=== PATIENT | female | born 1990 | race Caucasian/White ===

== ENCOUNTER 2019-01-09 09:48 | Emergency (ER) | payer OTHER ==
[2019-01-09 09:57] VITALS: BMI 24.4
[2019-01-09] MEDS ORDERED: FAMOTIDINE 20 MG/50 ML IVPB 20 MG/50 ML MG IVPB ONE ×2 (10:17→10:34)
[2019-01-09] MEDS ORDERED: SODIUM CHLORIDE 1,000 ML IV STA (10:17)
--- NOTE | 2019-01-09 10:18 | PDOC ---
History of Present Illness - General Chief Complaint: Nausea/Vomiting Stated Complaint: /VOMITING/PAIN Time Seen by Provider: 01/09/19 10:04 History Source: Patient Exam Limitations: Language Barrier - History of Present Illness Travel History: No Initial Comments: 01/09/19 10:15 Pt is a 28yo F at around 10w gestation with no signficant PMH presenting to ED with complaints of nausea, nbnb vomiting and abdominal pain x 1 week. Pt states that she has not been able to keep solids or liquids down. She endorses epigastric abdominal pain that does not radiate. Denies fever, chills, diarrhea , recent travel, sick contacts, bloody stools, flank pain, vaginal bleeding, vaginal discharge, leakage of fluids. She has an OB appointment in 3 days. She has not had any testing or imaging. Last BM yesterday PMD: [address] [place] PMH: none PSH: Meds: none Allergies: nkda Past History - Past Medical History Allergies/Adverse Reactions: Allergies Allergy/AdvReac Type Severity Reaction Status Date / Time No Known Allergies Allergy Verified 01/09/19 09:55 Home Medications: Ambulatory Orders Prenat 115/Iron Fum/Folic/Dss [ 19 Tablet] 1 each PO DAILY 01/09/19 - Suicide/Smoking/Psychosocial Hx Smoking History: Never smoked Review of Systems - Review of Systems Constitutional: No: Symptoms Reported HEENTM: No: Symptoms Reported Respiratory: No: Symptoms reported Cardiac (ROS): No: Symptoms Reported ABD/GI: Yes: See HPI, Nausea, Vomiting, Abdominal cramping. No: Constipated, Diarrhea : No: Symptoms Reported Musculoskeletal: No: Symptoms Reported Integumentary: No: Symptoms Reported Neurological: No: Symptoms reported *Physical Exam - Vital Signs Last Vital Signs Temp Pulse Resp BP Pulse Ox 97.9 F 90 20 100/50 L 99 01/09/19 09:55 01/09/19 09:55 01/09/19 09:55 01/09/19 09:55 01/09/19 09:55 - Physical Exam General Appearance: Yes: Nourished, Appropriately Dressed. No: Apparent Distress HEENT: positive: EOMI, AMELIA, Normal ENT Inspection Neck: positive: Trachea midline, Supple. negative: Lymphadenopathy (R), Lymphadenopathy (L) Respiratory/Chest: positive: Lungs Clear, Normal Breath Sounds. negative: Crackles, Rales Cardiovascular: positive: Regular Rhythm, Regular Rate, S1, S2. negative: Edema , JVD, Murmur Vascular Pulses: Carotid (R): 2+, Carotid (L): 2+, Dorsalis-Pedis (R): 2+, Doralis-Pedis (L): 2+ Gastrointestinal/Abdominal: positive: Normal Bowel Sounds, Tender (slight epigastric tenderness), Soft Musculoskeletal: negative: CVA Tenderness Extremity: positive: Normal Capillary Refill. 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 Pt states that she has not been able to keep solids or liquids down. She endorses epigastric abdominal pain that does not radiate. Denies fever, chills, diarrhea , recent travel, sick contacts, bloody stools, flank pain, vaginal bleeding, vaginal discharge, leakage of fluids. She has an OB appointment in 3 days. She has not had any testing or imaging. Vitals: slight hypotension PE: slight epigastric tenderness ddx includes but not limited to hyperemesis gravidarum, pancreatitis, cholecystitis, HELLP, colitis, viral gastritis, morning sickness -labs, bquant -tvus -fluids, vitamin b6, pepcid labs wnl. TVUS shows 7w5d iup. pt feeling better after medications. drinking gatorade, tolerating po. hemodynamically stable, has iup. pt has ob f/u. safe for dc home. given return precautions. *DC/Admit/Observation/Transfer Diagnosis at time of Disposition: Nausea and vomiting during , Intrauterine - Discharge Dispostion Disposition: HOME Condition at time of disposition: Improved Decision to Admit order: No - Referrals - Patient Instructions Printed Discharge Instructions: DI for Vomiting -- Adult Additional Instructions: Rocio changn en la german de emergencias por nuseas y vmitos. Rin anlisis de belen son normales. La ecografa indica que el beb tiene 7 semanas y 5 johnson de edad. Lo ms probable es que tenga nuseas matutinas. Por favor mantente marcy hidratado. Lupe muchos lquidos. Puede ayden vitamina B6 para las nuseas y vmitos. [place] se puede encontrar en la seccin de vitaminas de las farmacias. Tambin debe ayden vitaminas prenatales diariamente. Mantenga braxton gilbert el da 24. Regrese a la german de emergencias si tiene sangrado, contina vomitando, tiene fiebre o si se presenta algn sntoma nuevo. Patel You were seen in the emergency room today for nausea and vomiting. Your blood tests are normal. The ultrasound states that the baby is 7 weeks and 5 days old. You most likely have morning sickness. Please keep yourself well hydrated. Drink lots of fluids. You can take vitamin B6 for the nausea and vomiting. This can be found in the vitamin section of pharmacies. You should also take vitamins daily. Keep your appointment on the . Come back to the emergency room if you have bleeding, you continue vomiting, you have fever or if any new concerning symptom develops. Thank you Print Language: POLISH - Post Discharge Activity
[2019-01-09 10:37] LABS: BASO % 0.4 % (0-2.0); EOS % 0.5 % (0-4.5); HEMATOCRIT 36.1 % (32.4-45.2); HEMOGLOBIN 12.4 GM/dL (10.7-15.3); LYMPH % 17.7 % (8-40); MCHC 34.2 g/dl (32.0-36.0); MEAN CELL VOLUME 90.5 fl (80-96); MEAN PLT VOLUME 9.4 fl (7.5-11.1); MONO % 4.7 % (3.8-10.2); NEUT % 76.7 % (42.8-82.8); PLATELET COUNT 245 K/MM3 (134-434); RBC 3.99 M/mm3 (3.60-5.2); RDW 12.6 % (11.6-15.6); WHITE BLOOD COUNT 8.3 K/mm3 (4.0-10.0)
[2019-01-09] MEDS ORDERED: PYRIDOXINE HCL (B-6) 50 MG TABLET (FP) PO ONE (10:39)
[2019-01-09 10:53] LABS: URINE APPEARANCE CLEAR; URINE BILIRUBIN NEGATIVE (NEGATIVE); URINE COLOR YELLOW; URINE GLUCOSE (UA) NEGATIVE (NEGATIVE); URINE KETONE 1+ (NEGATIVE); URINE LEUK ESTERASE NEGATIVE (NEGATIVE); URINE NITRITE NEGATIVE (NEGATIVE); URINE PROTEIN NEGATIVE (NEGATIVE); URINE UROBILINOGEN 0.2 mg/dL (0.2-1.0)
--- NOTE | 2019-01-09 11:00 | PDOC ---
Attending Attestation - Resident Resident Name: Humaira Yepez - ED Attending Attestation I have performed the following: I have examined & evaluated the patient, The case was reviewed & discussed with the resident, I agree w/resident's findings & plan, Exceptions are as noted - HPI HPI: 01/09/19 11:15 28yo female at around 10 weeks gestation with n/v each morning for 1 week. Nbnb vomiting. Having normal bm. States epigastric pain from vomiting. No f/c. No dysuria. No diarrhea. No discharge or bleeding. Has not seen COMMUNITY DEVELOPMENT DIRECTOR for this - but has an appt on thursday [facility] No other complaints. - Physicial Exam PE: 01/09/19 11:17 Gen: aaox3, nad heart: +s1s2 reg lungs: cta b/l abd: soft, epigastric ttp, no rebound or guarding, no pelvic ttp ext: no c/c/e neuro: no focal deficits, awake, alert, oriented - Medical Decision Making 01/09/19 10:58 I, Dr. Alexandria Jones, DO, attest that this document has been prepared under my direction and personally reviewed by me in its entirety. I further attest, that it accurately reflects all work, treatment, procedures and medical decision -making performed by me. 01/09/19 11:21 a/p: 28yo female at around 10 weeks gestation with n/v x 1 week -nbnb, suspect first trimester vomiting in preg -low suspicion for infectious etiology or biliary disease -will send labs, ivf hydration, vitamin b6 -pt has not had eval for IUP with this preg, will send for tvus and labs -will monitor and reassess -pt is nontoxic in appearance 01/09/19 11:22 labs reviewed, no elevated wbc, no elevated lft, electrolytes reviewed ketones in ua will give another liter ivf hydration 01/09/19 11:37 pt 7weeks 5 days complex ovarian cyst FHR 158 01/09/19 12:14 a+ Rh 01/09/19 12:20 pt tolerated PO pt has central supply worker appt on 01/12 stable for dc to home
[2019-01-09 11:17] LABS: ALBUMIN 3.7 g/dl (3.4-5.0); ALK PHOS 48 U/L (45-117); ANION GAP 9 MMOL/L (8-16); BILIRUBIN,TOTAL 0.7 mg/dL (0.2-1); BLOOD UREA NITROGEN 7 mg/dL (7-18); CALCIUM 9.2 mg/dL (8.5-10.1); CHLORIDE 103 mmol/L (98-107); CO2 24 mmol/L (21-32); CREATININE 0.6 mg/dL (0.55-1.3); GLUCOSE,RANDOM 86 mg/dL (74-106); MAGNESIUM 2.1 mg/dL (1.8-2.4); POTASSIUM 3.9 mmol/L (3.5-5.1); SGOT/AST 18 U/L (15-37); SGPT/ALT 26 U/L (13-61); SODIUM 136 mmol/L (136-145)
[2019-01-09] MEDS ORDERED: SODIUM CHLORIDE 0.9% 1000 ML INFUS.BAG IV ONE (11:23)
[2019-01-09 12:32] VITALS: BP 108/45; PULSE 81; TEMP 98.1
== END 2019-01-09 12:37 | disposition home or self-care (01) ==
LOC: JER 09:48
PROC: 3E033GC Introduction of Other Therapeutic Substance into Peripheral Vein, Percutaneous Approach (ICD-10-PCS; principal; 2019-01-09)
DX: O26.891 Other specified pregnancy related conditions, first trimester (principal); O21.0 Mild hyperemesis gravidarum; Z3A.10 10 weeks gestation of pregnancy
CPT/HCPCS: 36415; 76801-TC; 80053; 81003; 83690; 83735; 84702; 85025; 86850; 86900; 86901; 96365; 99282-25; J7030